=== PATIENT | female | born 1950 | race African-American/Black ===

== ENCOUNTER 2016-05-21 18:20 | Inpatient (IN) | payer MEDICARE ==
--- NOTE | ~2016-05-21 | TH ---
Unit #: [id number] #: [id number] Patient: ROGELIO GONZALEZ [id number] [facility]. [address] [address] [id number] I MR#: [id number] NAME: ROGELIO GONZALEZ. : 1950 SEX: F STUDY DATE/TIME: 05/22/2016 UNIT: [facility] ROOM: 579 STUDY DESCRIPTION: Attending Physician: Derick Walsh M.D. Primary Care Physician: Purnima Briones [facility] CARDIOLOGY REPORT EXAM Lexiscan Cardiolite stress test, nuclear portion. PROCEDURE Using technetium 99m labeled Cardiolite, rest and stress SPECT images were obtained. Multiple SPECT images were obtained in various views including horizontal and vertical long axis and short axis views of the left ventricle. Images were obtained by gated SPECT method. The patient was administered 10.57 mCi of Cardiolite at rest. The patient was administered 30.9 mCi of Cardiolite after Lexiscan infusion was completed. On the stress images, there are small areas of decreased isotope activity in the anteroapical and the inferoapical wall. Comparing rest and stress images, there is suspicion for stress-induced ischemia involving the anteroapical and the inferoapical wall of the left ventricle. The left ventricular ejection fraction is calculated to be 57%. There is no focal wall motion abnormality seen. CONCLUSION 1. There is suspicion for small areas of stress-induced ischemia involving the anteroapical and the inferoapical wall of the left ventricle. 2. The left ventricular ejection fraction is calculated to be 57%. 3. There is no focal wall motion abnormality seen. 4. Technically extremely limited study due to patient's body habitus. Clinical correlation is requested. Dictated by... Judy Chan TD: 05/22/2016 15:04 JOB #: [id number] Unit #: [id number] #: [id number] Patient: ROGELIO GONZALEZ CARDIOLOGY REPORT X Ally Marti MD <ELECTRONICALLY SIGNED> 07/22/17 1429 CARDIOLOGY REPORT
--- NOTE | ~2016-05-21 | CR72 ---
[facility]. [facility] A Service of [facility] RADIOLOGY TEXT RESULTS PATIENT: ROGELIO GONZALEZ LOCATION: [facility] 579-01 : [birth year] UNIT #: [id number] AGE: [address]: Derikc Walsh MD SEX: F ORDER DR: [id number] [facility] [address] [facility]. [place], [place] [address] [id number] I MR#: [id number] Acc #: [id number] NAME: ROGELIO GONZALEZ. : 1950 SEX: F STUDY DATE/TIME: 05/21/2016 18:32 UNIT: [facility] ROOM: [facility] STUDY DESCRIPTION: CR Chest Single View Portable Attending Physician: Derick Walsh M.D. Ordering Physician: Toy Donnelly M.D. Primary Care Physician: [facility] MEDICAL IMAGING REPORT This report is preliminary unless electronic signature is present EXAM Portable chest HISTORY Chest pain today. FINDINGS Cardiac size near the upper limits of normal. Normal pulmonary vascularity. No pulmonary infiltrates or effusions. Surgical clips in the left axilla and probable left mastectomy. IMPRESSION No acute findings. No pulmonary infiltrates. Cardiac size near the upper limits of normal. Dictated by... Maverick Sanches M.D. THIS IS AN ELECTRONICALLY VERIFIED REPORT Maverick Sanches M.D. at 05/22/2016 2:19 PM DFL/melony TD: 05/22/2016 09:49 JOB #: [id number] MEDICAL IMAGING REPORT COPY
--- NOTE | ~2016-05-21 | ST ---
Unit #: [id number] #: [id number] Patient: ROGELIO GONZALEZ [id number] [address] [address] [id number] I MR#: [id number] NAME: ROGELIO GONZALEZ. : 1950 SEX: F STUDY DATE/TIME: 05/22/2016 UNIT: [facility] ROOM: 579 STUDY DESCRIPTION: Stress Test Attending Physician: Derick Walsh M.D. Primary Care Physician: [facility] CARDIOLOGY REPORT EXAM EKG Portion of a walking Lexiscan Cardiolite Stress Test REASON FOR TEST Left sided chest pain and shortness of breath. DESCRIPTION Baseline EKG showed sinus rhythm with a rate of 75. The patient was given 0.4 mg of Lexiscan followed by Cardiolite per protocol. Patient was unable to walk the full four minutes on the treadmill due to dizziness at about the three minute nathen. Patient's resting heart rate was 74 with a maximum heart rate of 109. The patient's resting blood pressure was 177/88 with a maximum blood pressure of 177/88. The patient tolerated it pretty well with no complaints of any chest pain, pressure or tightness during the test, only some mild dizziness at the three minute nathen that subsided by the end of the recovery period. There were no sustained arrhythmias noted. No changes to the ST segment and no ectopy noted. The patient tolerated it well with no complications. No reversal was needed. The test was stopped due protocol completion. IMPRESSION 1. No sustained arrhythmias. 2. No changes to ST segment. 3. No ectopy. 4. Patient did complain of some mild dizziness at the three minute nathen that subsided by the end of the testing period. 5. No complications. No reversal was noted. 6. Please correlate with Cardiolite imaging. Dictated by... DANDRE Zheng TD: 05/22/2016 12:16 JOB #: [id number] Unit #: [id number] #: [id number] Patient: ROGELIO GONZALEZ CARDIOLOGY REPORT X CARDIOLOGY REPORT
--- NOTE | ~2016-05-21 | DS ---
Unit #: [id number] #: [id number] Patient: ROGELIO GONZALEZ [id number] [facility]. [address] [place], [place] [address] [id number] I MR#: [id number] NAME: ROGELIO GONZALEZ. ROOM: 579 Age: 66 Sex: F Admission Date: 05/21/2016 : 1950 Discharge Date: 05/25/2016 Attending Physician: Derick Walsh M.D. Primary Care Physician: [facility] DISCHARGE SUMMARY DISCHARGE DIAGNOSES 1. Admitted with left breast pain with normal coronaries. 2. Normal left ventricular function with an EF of 50 to 55%. 3. Nonsustained ventricular tachycardia. 4. Obesity. Her body mass index is 41. 5. Hypertension, poorly controlled. 6. Diabetes type 2. 7. Hyperlipidemia. 8. Acute kidney injury on chronic kidney disease stage 4. HOSPITAL COURSE The patient presented to the emergency room with complaints of left breast pain. She denied any radiation. She was short of breath. No other associated symptoms, however. Cardiology admitted here for further evaluation. She underwent a stress test which was completed on 05/22/16 with a walking Lexiscan Cardiolite which was abnormal and then was further evaluated with cardiac catheterization to evaluate her coronary anatomy. Cardiac cath was done on 05/24/16 and her coronaries were normal. Consults were placed for Renal, Dr. Maxwell. She was seen in preparation for renal protection for a heart cath. She was cleared by Renal to undergo this with some fluid orders. Her creatinine was stable at 1.6 and it is what it is today. DIAGNOSTIC STUDIES CARDIOVASCULAR: A 2D echo on 05/22/16 which was a technically extremely limited study and the valves were not well visualized. However, the LV function was normal with an EF of 50 to 55%. She did have mild concentric LVH. Mild MR was present and mild TR was present and mild TR was present. Small pericardial effusion versus fat tissue was seen. However, with body habitus it was extremely hard to tell. She had a left heart cath but no LV-gram due to her renal dysfunction and that was done on 05/24/16. Her coronaries were normal. She had a walking Lexiscan Cardiolite done on 03/06/17 which was abnormal. She also had some dizziness during that procedure. She had an EKG on 05/24/16 which showed normal sinus rhythm. Ventricular rate of 79 beats per minute and a QTC of 428. Imaging included a chest x-ray on 05/21/16 in the ER showed no acute findings and no pulmonary infiltrates. LABORATORY: Testing dated 05/25/16 showed sodium 138, potassium 4.1, chloride 105, CO2 26, calcium 8.3, magnesium 2.2, BUN 41, creatinine 1.6, glucose 251. Hemoglobin A1C was found to be 8.3. Lipids were drawn on admission. Her cholesterol was 136, triglycerides 170, LDL 66, HDL 36. TSH was 2.06. Coagulation studies were normal. Troponin was negative. WBC 6.7, hemoglobin 9.6, hematocrit 29.1, platelets 165. Unit #: [id number] #: [id number] Patient: ROGELIO GONZALEZ DISCHARGE MEDICATIONS 1. Albuterol inhaler two puffs every four hours as needed for shortness of breath which is a home medication to continue. 2. Symbicort 80/4.5 mcg b.i.d. which is a home med and will continue. 3. Paxil 20 mg daily which is a home med to continue. 4. Claritin 10 mg daily which is a home med to continue. 5. Carvedilol we will continue but we will adjust her dose. She needs to be on 37.5 mg b.i.d. 6. Bumex 1 mg p.o. daily which is a home med but we will decrease that from b.i.d. to daily. 7. She will continue her Pravastatin 40 mg at bedtime. 8. Hydralazine 25 mg p.o. b.i.d. 9. Levemir insulin 60 units subcu at bedtime. 10. NovoLog 25 units with meals which is her home dose. 11. Ferrous sulfate tablets 325 mg b.i.d. 12. Allopurinol 300 mg daily which is a home med to continue. 13. Aspirin 81 mg daily. 14. Omeprazole 20 mg daily which is a home med to continue. PLAN She will be discharged home with stable condition. She was given prescriptions for hydralazine 25 mg b.i.d. and carvedilol new dose of 37.5 mg p.o. b.i.d. She will follow up with Dr. Marti on August 25 at 11:45 p.m. Education was provided on diabetes, hypertension, weight loss, post cath instructions, low salt diet and medication compliance. Dictated by... Zofia Levy APRN for Judy Chan TD: 05/25/2016 11:57 JOB #: [id number] DISCHARGE SUMMARY X X DISCHARGE SUMMARY
--- NOTE | ~2016-05-21 | CO ---
Unit #: [id number] #: [id number] Patient: ROGELIO ARRIAGA [id number] [address] [address] [id number] I MR#: [id number] NAME: ROGELIO ARRIAGA ROOM: 579 Age: 66 Sex: F Admission Date: 05/21/2016 : 1950 Attending Physician: Derick Walsh M.D. Primary Care Physician: [facility] Consultation Date: 05/23/2016 CONSULTATION REPORT REASON FOR CONSULTATION Acute on chronic kidney problems. HISTORY OF PRESENT ILLNESS Ms. Arriaga is a 66-year-old female, who was admitted on 05/21/2016 with complaints of chest pain. She has been evaluated by Cardiology and had an abnormal stress test and is going to need a heart catheterization. They have been trying to get her blood pressure under better control and she has been on large doses of diuretics with diuresis occurring. Her creatinine has increased this morning prompting our consult and prep for heart catheterization. She denies any chest pain or shortness of breath to me at this time. She says that she takes up to 3 Bumex a day, because of swelling issues and blood pressure. She denies any urinary complaints. She does not use any NSAIDs. No history of kidney stones. She has a history of poorly controlled diabetes. PAST MEDICAL HISTORY Significant for chronic kidney disease, stage 3; hypertension for at least 25 years; diabetes for 25 years; hyperlipidemia; asthma; gout; GERD; breast cancer; prior syncope; depression; and obesity. PAST SURGICAL HISTORY She has had a left mastectomy. CURRENT MEDICATIONS As follows; hydralazine just increased to 50 mg p.o. every 6 hours, Levemir insulin as directed, Lovenox 40 mg subcu daily, aspirin daily, Mucomyst 600 mg p.o. b.i.d., Lipitor 80 mg daily, iron tablet b.i.d., Claritin 10 mg a day, allopurinol 300 mg a day, Paxil 20 mg a day, Protonix 40 mg a day, Bumex 1 mg b.i.d., Cozaar 100 mg daily, chlorthalidone 25 mg a day, Coreg 12.5 mg b.i.d., Symbicort inhaler, sliding scale insulin, and Proventil p.r.n. ALLERGIES She has no known drug allergies. FAMILY HISTORY Negative for kidney problems or dialysis. There is a family history of heart disease and hypertension. SOCIAL HISTORY She lives with her daughter. She is a nonsmoker. No history of alcohol or drug abuse. Unit #: [id number] #: [id number] Patient: ROGELIO ARRIAGA REVIEW OF SYSTEMS A complete 12-point review of systems was completed with the above findings. In addition, she has not had any fevers or chills. No dizziness. No nosebleed, sore throat, or earache. No palpitations. No cough or hemoptysis. No nausea, vomiting, or diarrhea. No bright red blood per rectum or melena. No dysuria. No hematuria. No rashes or itching. No flank pain. No night sweats or hot flashes. No intolerance to heat or cold. No bleeding issues. No recent weight changes. Unless otherwise indicated, the review of systems was negative. PHYSICAL EXAMINATION VITAL SIGNS: The patient is afebrile, pulse 78, respiratory rate 20, blood pressure 165/82 and blood pressure has been as high as 190/83. I's and O's are negative by 880 mL. GENERAL: This is a 66-year-old female, very pleasant, alert, in no acute distress. HEENT: Head is atraumatic and normocephalic. Eyes show pale conjunctivae with no scleral icterus. No nasal drainage or nosebleed. Oropharynx is moist without thrush. She does have a narrow posterior pharyngeal airway. NECK: Thick with no JVD. HEART: Regular rate and rhythm with no significant murmur or rub appreciated. LUNGS: Clear with no wheezing or rhonchi. Breathing is nonlabored. ABDOMEN: Obese, soft, nontender, bowel sounds are present. EXTREMITIES: No lower extremity clubbing, cyanosis, or pitting edema. SKIN: Dry without rashes. MUSCULOSKELETAL: No CVA tenderness to palpation. No joint effusions noted. NEUROLOGIC: Cranial nerves are grossly intact with no gross motor deficits. LYMPHATIC: There is no neck or cervical lymphadenopathy. PSYCHIATRIC: Mood and affect appear normal. DIAGNOSTIC STUDIES LABORATORY RESULTS: Chemistry this morning noteworthy for a BUN and creatinine of 51 and 1.8 respectively. CBC showed a hemoglobin of 9.9. Troponin yesterday was negative. Yesterday's creatinine was 1.2 and admission creatinine was 1.5, 1.5 looks to be her baseline as she had this level upon discharge in 01/2014. Previous urine here have been negative for protein or blood. IMAGING STUDIES: Chest x-ray on admission showed no acute findings. She did have a kidney ultrasound order by my partner Dr. Maxwell when he saw her in 01/2014 that showed no acute issues. ASSESSMENT AND PLAN 1. Acute on chronic kidney disease, stage 3. The patient certainly does have chronic kidney disease based on baseline creatinine in the mid 1s. This is likely due to a poorly controlled high blood pressure and diabetes. I will be ordering a urinalysis to recheck for protein. Bump in her creatinine over the last 24 hours is likely due to diuresis and blood pressure variability. Her losartan has been stopped and I will hold her diuretics. She is already on Bumex and we will start a fluid prep. She is okay to have a heart catheterization. I would say if her creatinine falls back down to the 1.5 range tomorrow. 2. Hypertension. Her medications have been increased and I will add some Unit #: [id number] #: [id number] Patient: ROGELIO ARRIAGA Ricardo forrest as well. 3. Diabetes with poor control. We will update her hemoglobin A1c and check a urine for protein. 4. History of breast cancer. 5. Chest pain with abnormal stress test with heart catheterization possibly tomorrow. 6. I will be changing her proton pump inhibitor to Pepcid with her chronic kidney disease. I would like to thank Dr. Walsh for this consult and the opportunity to participate in evaluation and care of Ms. Arriaga. Dictated by... Mj Mojica Jr., M.D. HUMBERTO/karen TD: 05/23/2016 22:03 JOB #: [id number] CONSULTATION REPORT X Mj Mojica MD X CONSULTATION REPORT
--- NOTE | ~2016-05-21 | EKG ---
PATIENT: ROGELIO GONZALEZ UNIT #: [id number] Ventricular Rate: 79 BPM Atrial Rate: 79 BPM P-R Interval: 188 ms QRS Duration: 74 ms Q-T Interval: 374 ms QTC Calculation(Bezet): 428 ms P Murdock: 39 degrees Calculated R Murdock: 6 degrees Calculated T Murdock: 69 degrees Diagnosis Line: Normal sinus rhythm Diagnosis Line: Normal ECG Diagnosis Line: When compared with ECG of 23-MAY-2016 06:45, Diagnosis Line: (unconfirmed) Diagnosis Line: No significant change was found Diagnosis Line: Confirmed by YINKA MCKINNON MD ([id number]) on 05/24/2016 Diagnosis Line: 7:18:55 AM INTERPRETING MD: PRATIBHA WHEAT
--- NOTE | ~2016-05-21 | EKG ---
PATIENT: ROGELIO GONZALEZ UNIT #: [id number] Ventricular Rate: 82 BPM Atrial Rate: 82 BPM P-R Interval: 170 ms QRS Duration: 78 ms Q-T Interval: 374 ms QTC Calculation(Bezet): 436 ms P Bedford: 74 degrees Calculated R Bedford: 37 degrees Calculated T Bedford: 90 degrees Diagnosis Line: Normal sinus rhythm Diagnosis Line: Normal ECG Diagnosis Line: When compared with ECG of 01-FEB-2014 20:26, Diagnosis Line: No significant change was found Diagnosis Line: Confirmed by TOMASA DIEGO MD ([id number]) on Diagnosis Line: 05/23/2016 4:04:37 PM INTERPRETING MD: JOHNATHON WHEAT
--- NOTE | ~2016-05-21 | BMI ---
[facility] Nutrition Therapy DATE: 05/22/16 Patient: ROGELIO GONZALEZ Physician: MARYANA Address: [address] [place] [address] Room/Bed: [address] [place] [address], Zip: [place] [address] Admit Date: 05/21/16 Date of : [birth year] Height: 5 8 Weight: 275 124.9 HIGH BMI NOTE: DX: 66 Y.O. FEMALE ADMITTED FOR CHEST PAIN ANTHROPOMETRICS: 5'8", WT: 275# (125 KG), BMI: 41.8 DIET: NPO INTERVENTION: 1. NPO RECOMMENDATIONS: 1. ONCE MEDICALLY FEASIBLE, ADVANCE DIET INDICATED TO CC+HH TO PROMOTE GRADUAL WEIGHT LOSS TOWARDS HEALTHY BMI (19.0-25.0) OR +/-10%IBW RD WILL F/U PER PROTOCOL Respectfully, DESHAUN SANCHEZ MS, RD, LD Food and Nutritional Services [facility] cc: client file
--- NOTE | ~2016-05-21 | HP ---
Unit #: [id number] #: [id number] Patient: ROGELIO ARRIAGA [id number] [facility]. [address] [place], [place] [address] [id number] MR#: [id number] NAME: ROGELIO ARRIAGA. ROOM: 579 Age: 66 Sex: F Admission Date: 05/21/2016 : 1950 Attending Physician: Derick Walsh M.D. Primary Care Physician: [facility] HISTORY AND PHYSICAL HISTORY OF PRESENT ILLNESS This is a 66-year-old female with a history of hypertension, diabetes mellitus, hyperlipidemia, asthma and chronic kidney disease. The patient came to the emergency room with recurrent chest pain. According to the patient, she started having pain of her left breast without any radiation. She said she did feel a little short of breath, having a dull headache which is not unusual. She said that it just felt like a pushing stabbing type pressure. She denies any diaphoresis. No palpitations. No dizziness, presyncope or syncope. No nausea or vomiting. She denies having any recent cough, fever or chills. She was concerned it was something to do with her heart. She reports she has a son who a couple of years ago, in his late 40s from heart attack. He did have hypertension. In the emergency room the patient's blood pressure was 181/70, heart rate 89, respiratory rate 16, temperature 97.4, O2 saturations 100% on room air. Chest x-ray did not show anything acute. Her EKG showed sinus rhythm. No acute ischemic changes. Initial cardiac enzymes are negative. Her hemoglobin is down to 10.9. She did not report any anemia. The patient was given sublingual nitroglycerin and then ended up getting some Tylenol for headache. The patient did get an aspirin. The patient has been admitted for further evaluation and management. PAST MEDICAL HISTORY 1. Hypertension. 2. Diabetes mellitus type 2. 3. Hyperlipidemia. 4. History of gout. 5. Asthma. 6. Chronic kidney disease. 7. Breast cancer, status post left mastectomy about 25-30 years ago. 8. 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 9. History of syncope in the past, felt from dehydration and poorly controlled diabetes mellitus type 2. 10. In 2014, two-dimensional echo with left ventricular ejection fraction 50% with mild left ventricular hypertrophy and no valvular disease. 11. Stress test about four years ago at [facility]. According to the patient she was told it was normal. Details unavailable. 12. Depression. 13. Nonsmoker. 14. Obesity, 275 pounds with a BMI of 41. 15. The patient has a history of anemia and is on iron supplement. Unit #: [id number] #: [id number] Patient: ROGELIO ARRIAGA PAST SURGICAL HISTORY Left mastectomy for breast cancer in 1987. SOCIAL HISTORY The patient lives with her daughter. She said she tries to do a little walking. Will walk about 10 or 15 minutes a day. Other than that she is sedentary. She denies alcohol and illicit drug abuse. Denies nicotine abuse. FAMILY HISTORY Both her parents and siblings are in generally well health. She has a son who in his late 40s from some type of myocardial infarction. He did have hypertension. ALLERGIES No known drug allergies. HOME MEDICATIONS 1. FeroSul 325 mg 1 tablet p.o. b.i.d. 2. Claritin 10 mg p.o. daily. 3. Zyloprim 300 mg p.o. daily. 4. Paroxetine 20 mg p.o. daily. 5. Omeprazole 20 mg p.o. daily. 6. Pravastatin 40 mg p.o. at bedtime. 7. Bumex 1 mg p.o. b.i.d. 8. Cozaar 100 mg p.o. daily. 9. Chlorthalidone 25 mg p.o. daily. 10. Carvedilol 12.5 mg p.o. b.i.d. 11. Symbicort 2 puffs inhalation b.i.d. 12. Ventolin 2 puffs inhalation q.4 h. p.r.n. 13. NovoLog 25 units subcutaneous t.i.d. before meals. 14. Levemir 60 units subcutaneous at breakfast and at nighttime. REVIEW OF SYSTEMS CONSTITUTIONAL: Denies fever or chills. No recent weight gain or weight loss. HEENT: Denies headache or dizziness. No visual or hearing changes. NECK: No lymphadenopathy, thyromegaly or difficulty swallowing. CARDIOVASCULAR: Chest pain present. Denies palpitations. Denies increased lower extremity edema. PULMONARY: Slight shortness of breath with the chest pain. Denies paroxysmal or nocturnal dyspnea, orthopnea. GI: Denies nausea, vomiting or diarrhea with the chest pain. NEUROLOGIC: No focal weakness. PHYSICAL EXAMINATION GENERAL: On exam, Ms. Arriaga is a 66-year-old female in no acute respiratory distress. She is awake, alert and oriented. VITALS: Blood pressure is 162/68 and then later 190/83, heart rate 78, respiratory rate 20, temperature 97.8, O2 saturations 99% on room air. NECK: Trachea midline. No thyromegaly or lymphadenopathy. Normal carotic upstrokes. No jugular venous distension. LUNGS: Slightly diminished, otherwise clear. HEART: S1 and S2. Regular rate and rhythm. No clicks, murmurs or rubs. ABDOMEN: Obese, soft and nontender. Positive bowel sounds present. No hepatosplenomegaly. EXTREMITIES: Pedal pulses are palpable. No pedal edema. Unit #: [id number] #: [id number] Patient: ROGELIO ARRIAGA DIAGNOSTIC STUDIES IMAGING: Chest x-ray shows no acute findings. No pulmonary infiltrates. LABORATORY: Glucose 220, BUN 51, creatinine 1.2, EGF 57.5. Sodium 139, potassium 3.9, chloride 102, CO2 30, calcium 8.8, total protein 6.6, albumin 3.3, bilirubin total 0.5, AST 17, ALT 16, alkaline phosphatase 100. White blood cell count 6.9, hemoglobin 10.9, hematocrit 33.7, platelets 183. Initial cardiac enzymes, CK-MB 1.5, troponin less than 0.05. Repeat cardiac enzymes this morning, CK total 115, MB 1.9, percentage of MB 1.7, troponin less than 0.03. CARDIOVASCULAR: EKG shows normal sinus rhythm with ventricular rate 82 beats per minute. Questionable Q wave in V1. Poor R wave progression. Q wave also noted in lead 3. ASSESSMENT 1. Chest pain, questionable etiology. 2. Hypertension, poor controlled. 3. Diabetes mellitus type 2. 4. Hyperlipidemia. 5. Chronic kidney disease. 6. Obesity, BMI 41. 7. Asthma. 8. Anemia, chronic. 9. History of breast cancer, status post left mastectomy in 1987. 10. Left ventricular ejection fraction 60% on 2-D echo in 2013. No valvular disease. 11. Stress test four years ago. According to the patient she was told it was normal. 12. Nonsmoker. PLAN 1. The patient has been admitted for further evaluation. With her multiple comorbidities will proceed with a Lexiscan Cardiolite stress test to further evaluate for ischemic heart disease. 2. Obtain a two-dimensional echo to evaluate left ventricular function and valves. The patient's blood pressure was elevated on admission. Systolic was running 160s to 190s. Will add hydralazine 15 mg p.o. q.6 h. to her regimen. 3. Obtain a fasting lipid profile and TSH and evaluate. Will continue the patient on aspirin along with beta isabelle and statin. The patient is also on Cozaar, Bumex and chlorthalidone for her blood pressure management. Add Lovenox 40 mg subcutaneous daily for DVT prophylaxis. 4. On exam there are no signs or symptoms of acute congestive heart failure. 5. Further recommendations pending the results of the stress test and echo. 6. Encourage the patient to exercise and lose weight. Healthy lifestyle modifications. Dictated by Capri Valverde A.P.R.N. for Judy Chan/viola Unit #: [id number] #: [id number] Patient: ROGELIO ARRIAGA TD: 05/22/2016 14:10 JOB #: [id number] CC: [facility] HISTORY AND PHYSICAL X Capri Valverde APRN HISTORY AND PHYSICAL
--- NOTE | ~2016-05-21 | EKG ---
PATIENT: ROGELIO GONZALEZ UNIT #: [id number] Ventricular Rate: 84 BPM Atrial Rate: 84 BPM P-R Interval: 184 ms QRS Duration: 80 ms Q-T Interval: 368 ms QTC Calculation(Bezet): 434 ms P [place]: 60 degrees Calculated R [place]: 11 degrees Calculated T [place]: 62 degrees Diagnosis Line: Normal sinus rhythm Diagnosis Line: Normal ECG Diagnosis Line: No previous ECGs available Diagnosis Line: Confirmed by YINKA MCKINNON MD ([id number]) on 05/24/2016 Diagnosis Line: 7:14:15 AM INTERPRETING MD: PARTIBHA WHEAT
[~2016-05-21 18:20] MED LIST: ALLOPURINOL300 MG PO; ASPIRIN81 M2 PO; ATENOLOL-CHLORT1 TA2 PO; ATENOLOL-CHLORT1 TA3 PO; ATENOLOL25 MG PO; CELEBREX100 MG PO; CLARITIN10 M1 PO; CLARITIN10 M3 PO; COZAAR100 MG PO; FERRO-TIME325 MG PO; FUROSEMIDE40 MG PO; HUMALOG100 U/M2 SUBQ; HUMALOG100 U/ML INJ; HUMALOG100 U/ML SUBQ; LANTUS SOLOSTAR3 ML; LANTUS SOLOSTAR3 ML SUBD; LANTUS SOLOSTAR3 ML SUBQ; LANTUS100 UNITS/ SUBQ; LASIX PO; LOPID600 MG PO; LOSARTAN POTAS100 MG PO; OMEPRAZOLE20 M2 PO; PAROXETINE HCL20 MG PO; PAXIL PO; PRAVASTATIN SOD40 MG PO; PRILOSEC PO; PRILOSEC20 M1 PO; TYLENOL #3 PO; VICODIN PO; VITAMIN D250000 UNIT PO
[2016-05-21 18:55] LABS: POC - CKMB 1.7 ng/mL (0.0-7.9); POC - TROPONIN <0.05 ng/mL (<=0.05)
[2016-05-21 19:40] LABS: BASOPHIL# 0.1 X10e3 (0-0.3); BASOPHIL% 0.8 % (0-2.5); EOSINOPHIL# 0.3 X10e3 (0-0.7); EOSINOPHIL% 4.5 % (0.0-7.0); HEMATOCRIT 33.7 % (35.0-45.0); HEMOGLOBIN 10.9 gm/dL (12.0-16.0); LYMPHOCYTE# 2.2 X10e3 (1.0-3.5); LYMPHOCYTE% 30.6 % (17.0-45.0); MEAN CELL VOLUME 90.9 FL (83-96); MEAN CORPUSCULAR HEMOGLOBIN 29.4 PG (28-34); MEAN CORPUSCULAR HGB CONC 32.4 g/dL (30-36); MEAN PLATELET VOLUME 9.5 FL (6.5-11.5); MONOCYTE# 0.7 X10e3 (0-1.0); MONOCYTE% 9.6 % (3.0-12.0); NEUTROPHIL% 54.5 % (40-75); PLATELET COUNT 219 X10e3 (140-420); RED BLOOD COUNT 3.71 X10e (3.90-5.30); RED CELL DISTRIBUTION WIDTH 14.8 % (11.0-15.5); WHITE BLOOD COUNT 7.3 X10e3 (4.0-10.5)
[2016-05-21 19:41] LABS: DIFF IND NO
[2016-05-21 20:07] LABS: ALBUMIN SERUM 3.3 g/dL (3.5-5.0); BILIRUBIN, DIRECT 0.1 mg/dL (0.0-0.2); BILIRUBIN,INDIRECT 0.4 mg/dL (0.0-0.9); BILIRUBIN,TOTAL 0.5 mg/dL (0.2-2.0); BUN/CREATININE RATIO 34.66; CALCIUM SERUM 9.2 mg/dL (8.4-10.2); CREATININE SERUM 1.5 mg/dL (0.6-1.4); GLOM FILT RATE Estimated 44.4 mL/min (>60); POTASSIUM 3.6 mmol/L (3.5-5.1); PROTEIN TOTAL SERUM 6.6 g/dL (6.0-8.3)
[2016-05-21] MEDS ORDERED: CLARITIN10 M2 PO (21:01)
[2016-05-21] MEDS ORDERED: ZYLOPRIM PO (21:01)
[2016-05-21] MEDS ORDERED: FEROSUL325 ( 651 PO (21:01)
[2016-05-21] MEDS ORDERED: OMEPRAZOLE20 M2 PO (21:02)
[2016-05-21] MEDS ORDERED: PAROXETINE HCL20 M1 PO (21:02)
[2016-05-21] MEDS ORDERED: PRAVASTATIN SOD40 MG PO (21:03)
[2016-05-21] MEDS ORDERED: BUMEX1 MG PO (21:03)
[2016-05-21] MEDS ORDERED: CHLORTHALIDONE25 MG PO (21:04)
[2016-05-21] MEDS ORDERED: SYMBICORT80 INH (21:04)
[2016-05-21] MEDS ORDERED: COZAAR100 MG PO (21:04)
[2016-05-21] MEDS ORDERED: COREG12.5 MG PO (21:04)
[2016-05-21] MEDS ORDERED: ALBUTEROL17 GM INH (21:05)
[2016-05-21] MEDS ORDERED: NOVOLOG100 U/ML SUBQ (21:06)
[2016-05-21] MEDS ORDERED: LEVEMIR100 UNITS/ SUBQ (21:07)
[2016-05-22 05:18] LABS: BASOPHIL% 0.4 % (0-2.5); EOSINOPHIL# 0.2 X10e3 (0-0.7); EOSINOPHIL% 3.5 % (0.0-7.0); HEMATOCRIT 31.5 % (35.0-45.0); HEMOGLOBIN 10.3 gm/dL (12.0-16.0); LYMPHOCYTE# 2.5 X10e3 (1.0-3.5); MEAN CELL VOLUME 91.6 FL (83-96); MEAN CORPUSCULAR HEMOGLOBIN 29.9 PG (28-34); MEAN CORPUSCULAR HGB CONC 32.7 g/dL (30-36); MEAN PLATELET VOLUME 9.4 FL (6.5-11.5); MONOCYTE# 0.6 X10e3 (0-1.0); MONOCYTE% 8.7 % (3.0-12.0); NEUTROPHIL# 3.5 X10e3 (1.5-7.1); NEUTROPHIL% 51.4 % (40-75); PLATELET COUNT 183 X10e3 (140-420); RED BLOOD COUNT 3.44 X10e (3.90-5.30); RED CELL DISTRIBUTION WIDTH 14.7 % (11.0-15.5); WHITE BLOOD COUNT 6.9 X10e3 (4.0-10.5)
[2016-05-22 05:41] LABS: DIFF IND NO
[2016-05-22 05:48] LABS: BUN/CREATININE RATIO 42.5; CALCIUM SERUM 8.8 mg/dL (8.4-10.2); CREATININE SERUM 1.2 mg/dL (0.6-1.4); GLOM FILT RATE Estimated 57.5 mL/min (>60); POTASSIUM 3.9 mmol/L (3.5-5.1)
[2016-05-22 09:11] LABS: %MB 1.7 % (0.0-4.0); MB 1.9 ng/ml
[2016-05-23 05:57] LABS: HEMATOCRIT 30.4 % (35.0-45.0); HEMOGLOBIN 9.9 gm/dL (12.0-16.0); MEAN CELL VOLUME 91.1 FL (83-96); MEAN CORPUSCULAR HEMOGLOBIN 29.7 PG (28-34); MEAN CORPUSCULAR HGB CONC 32.6 g/dL (30-36); RED BLOOD COUNT 3.34 X10e (3.90-5.30); WHITE BLOOD COUNT 6.4 X10e3 (4.0-10.5)
[2016-05-23 06:31] LABS: PARTIAL THROMBOPLASTIN TIME 24.5 SECONDS (23.5-31.3); PROTHROMBIN TIME (PATIENT) 10.2 SECONDS (9.6-11.5)
[2016-05-23 06:33] LABS: BUN/CREATININE RATIO 28.33; CALCIUM SERUM 8.7 mg/dL (8.4-10.2); CREATININE SERUM 1.8 mg/dL (0.6-1.4)
[2016-05-23 16:42] LABS: URINE APPEARANCE CLEAR; URINE BILIRUBIN NEG (NEG); URINE BLOOD NEG (NEG); URINE COLOR YELLOW; URINE GLUCOSE NEG (NEG); URINE KETONE NEG (NEG); URINE LEUKOCYTE ESTERASE NEG (NEG); URINE NITRATE NEG (NEG); URINE PROTEIN NEG (NEG); URINE SPECIFIC GRAVITY 1.012 (1.003-1.035); URINE UROBILINOGEN 0.2 MG/DL (NEG)
[2016-05-23 16:57] LABS: CULTURE INDICATED? NO
[2016-05-24 07:11] LABS: BUN/CREATININE RATIO 30.62; CALCIUM SERUM 8.6 mg/dL (8.4-10.2); CREATININE SERUM 1.6 mg/dL (0.6-1.4); GLOM FILT RATE Estimated 41.2 mL/min (>60); POTASSIUM 4.1 mmol/L (3.5-5.1)
[2016-05-24 07:42] LABS: IRON SERUM 47 ug/dL (28-170); TOTAL IRON BINDING CAPACITY 220 ug/dL (269-535); TRANSFERRIN 157 mg/dL (192-382); TRANSFERRIN SATURATION 21 % (20-50)
[2016-05-24 08:18] LABS: BASOPHIL% 0.6 % (0-2.5); EOSINOPHIL# 0.3 X10e3 (0-0.7); EOSINOPHIL% 4.5 % (0.0-7.0); HEMATOCRIT 29.1 % (35.0-45.0); HEMOGLOBIN 9.6 gm/dL (12.0-16.0); MEAN CELL VOLUME 91.5 FL (83-96); MEAN CORPUSCULAR HEMOGLOBIN 30.1 PG (28-34); MEAN CORPUSCULAR HGB CONC 32.9 g/dL (30-36); MEAN PLATELET VOLUME 8.8 FL (6.5-11.5); MONOCYTE# 0.6 X10e3 (0-1.0); MONOCYTE% 8.9 % (3.0-12.0); NEUTROPHIL# 3.7 X10e3 (1.5-7.1); PARTIAL THROMBOPLASTIN TIME 23.6 SECONDS (23.5-31.3); PLATELET COUNT 165 X10e3 (140-420); RED BLOOD COUNT 3.18 X10e (3.90-5.30); RED CELL DISTRIBUTION WIDTH 14.7 % (11.0-15.5); WHITE BLOOD COUNT 6.7 X10e3 (4.0-10.5)
[2016-05-24 08:23] LABS: DIFF IND NO
[2016-05-24 23:35] LABS: MAGNESIUM 1.5 mg/dL (1.6-3.0); POTASSIUM 4.3 mmol/L (3.5-5.1)
[2016-05-25 06:08] LABS: BUN/CREATININE RATIO 25.62; CALCIUM SERUM 8.3 mg/dL (8.4-10.2); CREATININE SERUM 1.6 mg/dL (0.6-1.4); GLOM FILT RATE Estimated 41.2 mL/min (>60); POTASSIUM 4.1 mmol/L (3.5-5.1)
[2016-05-25] MEDS ORDERED: ASPIRIN81 MG PO (13:49)
[2016-05-25] MEDS ORDERED: HYDRALAZINE HCL50 MG PO (13:50)
== END 2016-05-25 16:12 | disposition home or self-care (01) | DRG 287 ==
LOC: CED 18:20 → CEDOF 21:00 → C5C 05-22 00:16
PROVIDERS: Emergency Medicine; Internal Medicine Cardiovascular Disease; Internal Medicine Nephrology; Nurse Practitioner
PROC: B24BZZZ Ultrasonography of Heart with Aorta (ICD-10-PCS; 2016-05-22)
PROC: 4A023N7 Measurement of Cardiac Sampling and Pressure, Left Heart, Percutaneous Approach (ICD-10-PCS; principal; 2016-05-24)
PROC: B211YZZ Fluoroscopy of Multiple Coronary Arteries using Other Contrast (ICD-10-PCS; 2016-05-24)
PROC: B215YZZ Fluoroscopy of Left Heart using Other Contrast (ICD-10-PCS; 2016-05-24)
DX: R07.89 Other chest pain (principal); I47.2 Ventricular tachycardia; N17.9 Acute kidney failure, unspecified; Z68.41 Body mass index [BMI] 40.0-44.9, adult; N18.4 Chronic kidney disease, stage 4 (severe); E66.9 Obesity, unspecified; I13.10 Hypertensive heart and chronic kidney disease without heart failure, with stage 1 through stage 4 chronic kidney disease, or unspecified chronic kidney disease; E11.22 Type 2 diabetes mellitus with diabetic chronic kidney disease; E11.65 Type 2 diabetes mellitus with hyperglycemia; Z79.4 Long term (current) use of insulin; E78.5 Hyperlipidemia, unspecified; J45.909 Unspecified asthma, uncomplicated; K21.9 Gastro-esophageal reflux disease without esophagitis; D64.9 Anemia, unspecified; F32.9 Major depressive disorder, single episode, unspecified; Z82.49 Family history of ischemic heart disease and other diseases of the circulatory system; Z90.12 Acquired absence of left breast and nipple; Z85.3 Personal history of malignant neoplasm of breast; R42 Dizziness and giddiness; R94.39 Abnormal result of other cardiovascular function study
CPT/HCPCS: 36415; 71010; 78452; 80048; 80061; 80076; 81003; 82550; 82553; 82728; 82947; 83036; 83540; 83550; 83735; 84132; 84443; 84484; 85025; 85027; 85610; 85730; 93005; 93017; 93306; 94640; 94664; 94760; 99285; A9500; C1769; C1887; C1894; J1644; J1650; J1815; J2250; J2785; J3010; J3475